=== PATIENT | female | born 1925 | race Caucasian/White ===

== ENCOUNTER 2016-12-22 10:49 | Inpatient (IN) | payer MEDICARE ==
[2016-12-22] MEDS ORDERED: SODIUM CHLORIDE 0.9% 1,000 ML IV ONE (11:13)
[2016-12-22] MEDS ORDERED: HYDROmorphone 1 MG/ML 1 ML SYRINGE IVP STA (11:13)
[2016-12-22] MEDS ORDERED: ONDANSETRON 4 MG/2 ML VIAL IVP STA (11:13)
[2016-12-22] MEDS ORDERED: hydrALAZINE HCL 20 MG/ML 1 ML VIAL IVP STA (11:16)
--- NOTE | 2016-12-22 11:41 | ED ---
Fall HPI - General Chief Complaint: Fall Stated Complaint: Fall Time Seen by Provider: 12/22/16 11:07 Source: patient, EMS Mode of arrival: EMS - History of Present Illness Initial Comments: 89-year-old white female presents with a complaint of left hip pain. She barely was on a stool and may have slid off of it when getting down and fell and landed on her left hip. She was unable to walk afterwards. The pain is fairly severe. She presents via EMS with a shortened and externally rotated left leg. She denies any other injuries. She did not hit her head. She has no neck or back pain. No other complaints or modifying factors. - Related Data Home Medications Medication Instructions Recorded Confirmed Albuterol Nebulized [Ventolin 2.5 mg PO RT-Q4H PRN 12/22/16 12/22/16 Nebulized] Atenolol 25 mg PO DAILY 12/22/16 12/22/16 Fluticasone/Salmeterol [Advair 1 inhalation PO RT-BID 12/22/16 12/22/16 250-50 Diskus] HYDROcodone/APAP 7.5-325MG [[place] 1 tab PO Q6HR PRN 12/22/16 12/22/16 7.5-325] Levothyroxine (Unknown Dose) 1 tab PO DAILY 12/22/16 12/22/16 Loratadine [Claritin] 10 mg PO DAILY 12/22/16 12/22/16 Montelukast Sodium [Singulair] 10 mg PO DAILY 12/22/16 12/22/16 Allergies Allergy/AdvReac Type Severity Reaction Status Date / Time Sulfa (Sulfonamide Allergy Itching Verified 12/22/16 11:34 Antibiotics) atorvastatin [From Lipitor] AdvReac Unknown Verified 12/22/16 11:34 methotrexate AdvReac Swelling Verified 12/22/16 11:34 Review of Systems ROS Statement: Those systems with pertinent positive or pertinent negative responses have been documented in the HPI. ROS Other: All systems not noted in ROS Statement are negative. Past Medical History Past Medical History: Asthma, COPD, Fibromyalgia Additional Past Medical History / Comment(s): neuopathy History of Any Multi-Drug Resistant Organisms: None Reported Past Surgical History: Appendectomy, Hernia Repair, Orthopedic Surgery Additional Past Surgical History / Comment(s): arm and knee orthopedic surgery Past Psychological History: No Psychological Hx Reported Smoking Status: Never smoker Past Alcohol Use History: Rare Past Drug Use History: None Reported General Exam - General Exam Comments Initial Comments: GENERAL: The patient is well nourished and well hydrated. VITAL SIGNS: Heart rate, blood pressure, respiratory rate reviewed as recorded in nurse's notes. EYES: Pupils are round and reactive. Extraocular movements are intact. No conjunctival / lid redness or swelling. ENT: No external evidence of injury, swelling, or ecchymosis. Airway is patent. Throat is clear. NECK: Nontender. No swelling or evidence of injury. No subcutaneous emphysema. Trachea is midline. No thyroid mass. HEART: Regular rate and rhythm. Good peripheral pulses. LUNGS/CHEST: Breath sounds clear and equal bilaterally. No rales, rhonchi, or wheezes. No ecchymosis, subcutaneous emphysema, or tenderness. ABDOMEN: Abdomen soft without tenderness. No palpable masses or organomegaly. No peritoneal signs. No abdominal wall swelling or ecchymosis. EXTREMITIES: There is some tenderness noted to the left hip. There is pain with any attempted range of motion left hip. Normal muscle tone and function. No thoracolumbar tenderness. Good pedal pulses noted. NEUROLOGIC: Sensation is grossly intact. Cranial nerve exam reveals face is symmetrical, tongue is midline, speech is clear. SKIN: No abrasions or ecchymosis is noted. No induration or masses noted. PSYCHIATRIC: Alert and oriented. Appropriate behavior and judgment. Limitations: no limitations Course Vital Signs 12/22/16 12/22/16 10:49 12:10 Temperature 97.8 F Pulse Rate 66 Respiratory 20 Rate Blood Pressure 208/103 156/72 O2 Sat by Pulse 97 Oximetry Medical Decision Making - Medical Decision Making The patient was seen and examined. All diagnostics were reviewed. The laboratory overall is unremarkable. The chest x-ray does not show any acute process. The left hip x-ray does show evidence of a intertrochanteric fracture. She receives Dilaudid 0.5 mg IV with significant relief of her pain. She refuses any additional pain medication on recheck. She also received Zofran for nausea prevention. It is felt as though she would benefit from admission to the hospital for further treatment. She is agreeable with this plan. Orthopedics has been paged and we are currently awaiting their call back. - Lab Data Result diagrams: 12/22/16 11:45 06/09/17 11:45 Lab Results 12/22/16 12/22/16 12/22/16 Range/Units 11:45 11:45 11:45 WBC 9.7 (3.8-10.6) k/uL RBC 3.99 (3.80-5.40) m/uL Hgb 11.9 (11.4-16.0) gm/dL Hct 36.6 (34.0-46.0) % MCV 91.9 (80.0-100.0) fL MCH 29.9 (25.0-35.0) pg MCHC 32.6 (31.0-37.0) g/dL RDW 13.3 (11.5-15.5) % Plt Count 205 (150-450) k/uL Neutrophils % 89 % Lymphocytes % 5 % Monocytes % 4 % Eosinophils % 0 % Basophils % 0 % Neutrophils # 8.6 H (1.3-7.7) k/uL Lymphocytes # 0.5 L (1.0-4.8) k/uL Monocytes # 0.4 (0-1.0) k/uL Eosinophils # 0.0 (0-0.7) k/uL Basophils # 0.0 (0-0.2) k/uL PT 10.7 (9.0-12.0) sec INR 1.1 (<1.1) APTT 23.3 (22.0-30.0) sec Sodium 134 L (137-145) mmol/L Potassium 4.4 (3.5-5.1) mmol/L Chloride 102 (98-107) mmol/L Carbon Dioxide 23 (22-30) mmol/L Anion Gap 9 mmol/L BUN 22 H (7-17) mg/dL Creatinine 0.83 (0.52-1.04) mg/dL Est GFR (MDRD) Af Amer >60 (>60 ml/min/1.73 sqM) Est GFR (MDRD) Non-Af >60 (>60 ml/min/1.73 sqM) Glucose 129 H (74-99) mg/dL Calcium 9.0 (8.4-10.2) mg/dL Disposition Clinical Impression: Fall, Fracture of left hip Disposition: ADMITTED IP TO THIS [facility] Condition: Fair Time of Disposition: 13:46 Decision Date: 12/22/16 Decision Time: 13:46
[2016-12-22 12:23] LABS: Basophils % (A) 0 %; CH 29.9; CHCM 32.6; Eosinophils % (A) 0 %; HCT 36.6 % (34.0-46.0); HDW 2.31; HGB 11.9 gm/dL (11.4-16.0); Luc # (Auto) 0.11; Luc % (Auto) 1; Lymphocytes # (A) 0.5 k/uL (1.0-4.8); Lymphocytes % (A) 5 %; MCH 29.9 pg (25.0-35.0); MCHC 32.6 g/dL (31.0-37.0); MCV 91.9 fL (80.0-100.0); Mean Platelet Volume 6.9; Monocytes # (A) 0.4 k/uL (0-1.0); Monocytes % (A) 4 %; Neutrophils # (A) 8.6 k/uL (1.3-7.7); Neutrophils % (A) 89 %; RBC 3.99 m/uL (3.80-5.40); RDW 13.3 % (11.5-15.5); WBC 9.7 k/uL (3.8-10.6); WBC (Perox) 9.63
[2016-12-22 12:28] LABS: INR 1.1 (<1.1); Partial Thromboplastin Time 23.3 sec (22.0-30.0); Prothrombin Time 10.7 sec (9.0-12.0)
[2016-12-22 12:37] LABS: Anion Gap 9 mmol/L; Blood Urea Nitrogen 22 mg/dL (7-17); Carbon Dioxide 23 mmol/L (22-30); Chloride 102 mmol/L (98-107); Glucose 129 mg/dL (74-99); Non-African American GFR(MDRD) >60 (>60 ml/min/1.73 sqM); Potassium 4.4 mmol/L (3.5-5.1); Sodium 134 mmol/L (137-145)
--- NOTE | 2016-12-22 13:17 | XR ---
EXAMINATION TYPE: XR chest 1V DATE OF EXAM: 12/22/2016 COMPARISON: NONE HISTORY: Chest pain after fall today. TECHNIQUE: Single AP portable frontal semiupright view of the chest is obtained. FINDINGS: There is chronic parenchymal change without suspicious new focal air space opacity, pleura l effusion, or pneumothorax seen. The cardiac silhouette size is within normal limits with atheroscl erotic thoracic aorta. The osseous structures are demineralized. Surgical change right humerus and shoulder is noted. IMPRESSION: No acute process.
--- NOTE | 2016-12-22 13:18 | XR ---
EXAMINATION TYPE: XR Hip LT and AP Pelvis DATE OF EXAM: 12/22/2016 COMPARISON: NONE HISTORY: Fall injury today with pelvic and left hip pain. TECHNIQUE: A single AP view of the pelvis is obtained. Two views of the left hip are obtained. FINDINGS: Osseous structures are demineralized. There is acute comminuted displaced intertrochanteric fracture left proximal femur. There are at least 3 displaced fracture fragments identified includin g largest fragment involving the lesser trochanter. Moderate joint space loss in both hips is present. No additional acute fracture and pelvis is clearly seen. Vascular calcification overlies the pelvis. IMPRESSION: There is acute comminuted displaced intertrochanteric fracture left proximal femur. (Initial encounter closed type post traumatic fracture)
--- NOTE | 2016-12-22 13:47 | ED ---
Medical Decision Making - Medical Decision Making The EKG shows a normal sinus rhythm at a rate of 63. There is no acute ST-T wave changes identified. The AR interval is 176, QRS duration is 84, and the QTc interval is 456. - Lab Data Result diagrams: 12/22/16 11:45 12/22/16 11:45 Lab Results 12/22/16 12/22/16 12/22/16 Range/Units 11:45 11:45 11:45 WBC 9.7 (3.8-10.6) k/uL RBC 3.99 (3.80-5.40) m/uL Hgb 11.9 (11.4-16.0) gm/dL Hct 36.6 (34.0-46.0) % MCV 91.9 (80.0-100.0) fL MCH 29.9 (25.0-35.0) pg MCHC 32.6 (31.0-37.0) g/dL RDW 13.3 (11.5-15.5) % Plt Count 205 (150-450) k/uL Neutrophils % 89 % Lymphocytes % 5 % Monocytes % 4 % Eosinophils % 0 % Basophils % 0 % Neutrophils # 8.6 H (1.3-7.7) k/uL Lymphocytes # 0.5 L (1.0-4.8) k/uL Monocytes # 0.4 (0-1.0) k/uL Eosinophils # 0.0 (0-0.7) k/uL Basophils # 0.0 (0-0.2) k/uL PT 10.7 (9.0-12.0) sec INR 1.1 (<1.1) APTT 23.3 (22.0-30.0) sec Sodium 134 L (137-145) mmol/L Potassium 4.4 (3.5-5.1) mmol/L Chloride 102 (98-107) mmol/L Carbon Dioxide 23 (22-30) mmol/L Anion Gap 9 mmol/L BUN 22 H (7-17) mg/dL Creatinine 0.83 (0.52-1.04) mg/dL Est GFR (MDRD) Af Amer >60 (>60 ml/min/1.73 sqM) Est GFR (MDRD) Non-Af >60 (>60 ml/min/1.73 sqM) Glucose 129 H (74-99) mg/dL Calcium 9.0 (8.4-10.2) mg/dL Disposition Clinical Impression: Fall, Fracture of left hip Disposition: ADMITTED IP TO THIS HOSP Condition: Fair Referrals: Nonstaff,Physician [Primary Care Provider] - 1-2 days
[2016-12-22] MEDS ORDERED: NALOXONE 0.4 MG/ML 1 ML VIAL IV PRN (13:48)
[2016-12-22] MEDS ORDERED: ONDANSETRON 4 MG/2 ML VIAL IVP PRN (13:48)
[2016-12-22] MEDS ORDERED: HYDROcodone/APAP 7.5-325MG 1 EACH TAB PO PRN (13:54)
[2016-12-22] MEDS ORDERED: ALBUTEROL NEBULIZED 2.5 MG/3 ML INHALATION PRN (13:54)
[2016-12-22] MEDS: HYDROmorphone 1 MG/ML 1 ML SYRINGE IV PRN ×2 (17:26→22:08)
[2016-12-22] MEDS: SYMBICORT 80-4.5 MCG INHALER INHALATION SCH (19:29)
[2016-12-23] MEDS: HYDROmorphone 1 MG/ML 1 ML SYRINGE IV PRN ×5 (01:04→22:31)
[2016-12-23] MEDS: LEVOTHYROXINE 25 MCG TAB PO SCH (06:39)
[2016-12-23] MEDS: ATENOLOL 25 MG TAB PO SCH (08:56)
[2016-12-23] MEDS: PANTOPRAZOLE 40 MG/10 ML VIAL IV SCH (08:57)
[2016-12-23] MEDS: MONTELUKAST 10 MG TAB PO SCH (08:57)
[2016-12-23] MEDS: LORATADINE 10 MG TAB PO SCH (08:57)
[2016-12-23] MEDS ORDERED: ENOXAPARIN 40 MG/0.4 ML SYRINGE SQ SCH (09:00)
[2016-12-23] MEDS: SYMBICORT 80-4.5 MCG INHALER INHALATION SCH ×2 (09:01→18:49)
--- NOTE | 2016-12-23 09:08 | HP ---
DATE OF ADMISSION: 12/22/2016 CHIEF COMPLAINT: Pain and swelling and left hip fracture. HISTORY OF PRESENT ILLNESS: This 89 -year-old woman with past medical history of asthma, COPD, history of fibromyalgia, peripheral neuropathy, hypothyroidism, history of balance issues being followed by primary physician, in the family. The patient fell and suffered a left hip fracture and patient the patient came to [facility] and was admitted to the hospital for further evaluation and treatment. The patient was also evaluated by the patient's primary physician. The patient had apparently low blood pressure medication adjusted at this time. Otherwise, there is no history of any fever, rigors or chills. No history of headache, loss of consciousness or seizures. There is no history of any chest pain, hematochezia, melena at this time. PAST MEDICAL HISTORY: History of asthma, COPD, history of fibromyalgia, hypertension, degenerative joint disease, history of neuropathy. History of gait dysfunction. Medications prior to admission include home medications are: 1. Synthroid 25 mg p.o. daily. 2. Claritin 10 mg p.o. daily. 3. Arnold 7.5 q.6h p.r.n. 4. Singulair 10 mg p.o. daily. 5. Advair 250/50, 1 puff b.i.d. 6. Atenolol 25 mg p.o. daily. 7. Albuterol 2.5 q.4 p.r.n. ALLERGIES: SULFA. NITROSTAT AND METHOTREXATE. FAMILY HISTORY: History of congestive heart failure, 89. SOCIAL HISTORY: Previous history of smoking. Occasional alcohol intake. REVIEW OF SYSTEMS: ENT: Diminishing hearing. Diminished vision. CARDIOVASCULAR: No angina, palpitations. RESPIRATORY: No cough. GI: No nausea or vomiting. GENITOURINARY: No dysuria. Nervous system: No numbness, weakness. ALLERGY/IMMUNOLOGY: No asthma or hayfever. MUSCULOSKELETAL: As mentioned earlier. HEMATOLOGY/ONCOLOGY: No history of anemia. ENDOCRINE: No diabetes. Hypothyroidism. CONSTITUTIONAL: As mentioned earlier. DERMATOLOGY: Negative. RHEUMATOLOGY: Negative. PSYCHIATRY: As mentioned earlier. PHYSICAL EXAMINATION: The patient is alert and oriented times three. Pulse 63. Blood pressure 175/80. Respiratory rate 16. Temperature 98 degrees. Pulse ox 92% on room air. HEENT: Conjunctivae normal. NECK: No jugular venous distention. CARDIOVASCULAR: S1, S2 muffled. No S3, no S4. RESPIRATORY: Breath sounds diminished at the bases. No rhonchi, no crackles. ABDOMEN: Soft, nontender. No mass palpable. No hepatosplenomegaly. LEGS: Status post left hip fracture. Nervous system: Higher function as mentioned earlier. Moves all four limbs. No focal deficits. LYMPHATICS: No lymph nodes palpable in the neck, axillae or groin. SKIN: No ulcer, rash or bleeding. LABS: CBC within normal limits, sodium 134, glucose 110. ASSESSMENT: 1. Status post left hip fracture. 2. Hyponatremia, mild. 3. Increased random blood sugar. 4. History of asthma, chronic obstructive pulmonary disease. 5. History of fibromyalgia. 6. History of hypertension. 7. History of degenerative joint disease. 8. History of hypothyroidism. 9. History of peripheral neuropathy left foot. 10. Home oxygen with 2 liters of chronic hypoxic respiratory failure at home. 11. History of degenerative joint disease. 12. Remote history of nicotine dependence. 13. FULL CODE. RECOMMENDATIONS AND DISCUSSION: In this 89-year-old woman who presented with multiple complex medical issues, we will monitor the patient closely, continue the current medications. Continue symptomatic treatment. Otherwise, at this time, I recommend resume the home medications, bronchodilators. Otherwise, DVT prophylaxis. Incentive spirometry. Proton pump inhibitors. We will follow the patient closely and orthopedics will consult with surgery. The patient is currently stable and medically cleared for surgery. Continue to follow. Further recommendations to follow. She orders for details. ESPERANZAD
[2016-12-23 09:24] LABS: Basophils % (A) 0 %; CH 29.5; CHCM 32.7; Eosinophils # (A) 0.3 k/uL (0-0.7); Eosinophils % (A) 4 %; HCT 29.4 % (34.0-46.0); Luc # (Auto) 0.14; Luc % (Auto) 2; Lymphocytes # (A) 0.8 k/uL (1.0-4.8); Lymphocytes % (A) 13 %; MCH 30.1 pg (25.0-35.0); MCHC 33.2 g/dL (31.0-37.0); MCV 90.8 fL (80.0-100.0); Mean Platelet Volume 6.5; Monocytes # (A) 0.5 k/uL (0-1.0); Monocytes % (A) 8 %; Neutrophils # (A) 4.1 k/uL (1.3-7.7); Neutrophils % (A) 72 %; RBC 3.24 m/uL (3.80-5.40); WBC 5.8 k/uL (3.8-10.6); WBC (Perox) 5.91
[2016-12-23 09:29] LABS: Anion Gap 6 mmol/L; Blood Urea Nitrogen 16 mg/dL (7-17); Calcium 8.2 mg/dL (8.4-10.2); Carbon Dioxide 23 mmol/L (22-30); Chloride 104 mmol/L (98-107); Glucose 96 mg/dL (74-99); Non-African American GFR(MDRD) >60 (>60 ml/min/1.73 sqM); Sodium 133 mmol/L (137-145)
[2016-12-23 09:32] LABS: HGB 9.8 gm/dL (11.4-16.0)
--- NOTE | 2016-12-23 11:11 | P.CNOR ---
History of Present Illness - [facility] Consult date: 12/23/16 Requesting physician: Ben Scales Consult reason: fracture (Left IT hip fracture) History of present illness: Patient is a pleasant 89-year-old female seen at bedside this morning. She states she stepped off a barstool and fell to her left hip which resulted in significant left hip pain. She was seen in the emergency department where x- rays showed a left intertrochanteric hip fracture. She was admitted to internal medicine is currently pending clearance with plans to proceed with surgical intervention to repair the left hip fracture Dr. Scales. She has pain at the left hip and thigh as expected. She denies any new complaints. She has chronic fibromyalgia and neuropathy she states at the left lower extremity which has included some numbness and tingling and pain that has been chronic. She she denies new numbness or tingling or calf pain. Review of systems is negative for fever, chills, chest pain, shortness of breath, nausea, vomiting, slurred speech or other. Review of Systems All systems: negative Constitutional: Denies chills, Denies fever Eyes: denies blurred vision, denies pain Ears, nose, mouth and throat: Denies headache, Denies sore throat Cardiovascular: Denies chest pain, Denies shortness of breath Respiratory: Denies cough Gastrointestinal: Denies abdominal pain, Denies diarrhea, Denies nausea, Denies vomiting Genitourinary: Denies dysuria, Denies hematuria Musculoskeletal: Denies myalgias Integumentary: Denies pruritus, Denies rash Neurological: Reports numbness, Denies confusion, Denies weakness Psychiatric: Denies anxiety, Denies depression Endocrine: Denies fatigue, Denies weight change Past Medical History Past Medical History: Asthma, COPD, Eye Disorder, Fibromyalgia, Hypertension, Osteoarthritis (OA), Thyroid Disorder Additional Past Medical History / Comment(s): neuopathy LT FOOT, HOME 02 2 LITERS NEEDED.OCC PALPATATIONS. History of Any Multi-Drug Resistant Organisms: None Reported Past Surgical History: Appendectomy, Hernia Repair, Orthopedic Surgery Additional Past Surgical History / Comment(s): rt wrist/shoulder sx d/t break has plate and screws,rt inguinal herna repair, rt knee arthroscopy, cataractremoved has lens implants, hemorrhoidectomy Past Anesthesia/Blood Transfusion Reactions: No Reported Reaction Additional Past Anesthesia/Blood Transfusion Reaction / Comm: had blood transfusion in past-no reaction Past Psychological History: No Psychological Hx Reported Additional Psychological History / Comment(s): pt lives in [place],alone in own home that has 3 steps. has 1 pet dog. no home care services curently. has home 02 2 liters n/c as needed and uses a cane when outside her home. Smoking Status: Former smoker Past Alcohol Use History: Rare Additional Past Alcohol Use History / Comment(s): started smoking at age 22 quit at age 62 smoked 6-7 cig/day Past Drug Use History: None Reported - Past Family History Mother Family Medical History: Congestive Heart Failure (CHF) Additional Family Medical History / Comment(s): at age 97 Father Family Medical History: CVA/TIA Additional Family Medical History / Comment(s): at age 88 Medications and Allergies Home Medications Medication Instructions Recorded Confirmed Type Albuterol Nebulized [Ventolin 2.5 mg PO RT-Q4H PRN 12/22/16 12/22/16 History Nebulized] Atenolol 25 mg PO DAILY 12/22/16 12/22/16 History Fluticasone/Salmeterol [Advair 1 inhalation PO RT-BID 12/22/16 12/22/16 History 250-50 Diskus] HYDROcodone/APAP 7.5-325MG [[place] 1 tab PO Q6HR PRN 12/22/16 12/22/16 History 7.5-325] Levothyroxine Sodium [Synthroid] 25 mcg PO QAM 12/22/16 12/22/16 History Loratadine [Claritin] 10 mg PO DAILY 12/22/16 12/22/16 History Montelukast Sodium [Singulair] 10 mg PO DAILY 12/22/16 12/22/16 History Allergies Allergy/AdvReac Type Severity Reaction Status Date / Time Sulfa (Sulfonamide Allergy Itching Verified 12/22/16 11:34 Antibiotics) atorvastatin [From Lipitor] AdvReac MUSCLE PAIN Verified 12/22/16 14:08 methotrexate AdvReac Swelling Verified 12/22/16 11:34 Physical Examination Inspection of the left lower extremity shows a shortened externally rotated left leg. Left hip is not put through range of motion due to her fracture. Motor is intact at the knee, ankle, foot and toes. Sensation to light touch is intact about the left lower extremity. The calf is soft and nontender. 2+ dorsalis pedis pulse and less than 2 second cap refill is present. Results X-ray of the pelvis left hip show a mild displaced intertrochanteric femur fracture. - Labs Labs: Abnormal Lab Results - Last 24 Hours (Table) 12/22/16 12/22/16 12/23/16 Range/Units 11:45 11:45 08:00 RBC 3.24 L (3.80-5.40) m/uL Hgb 9.8 L D (11.4-16.0) gm/dL Hct 29.4 L (34.0-46.0) % Neutrophils # 8.6 H (1.3-7.7) k/uL Lymphocytes # 0.5 L 0.8 L (1.0-4.8) k/uL Sodium 134 L (137-145) mmol/L BUN 22 H (7-17) mg/dL Glucose 129 H (74-99) mg/dL Calcium (8.4-10.2) mg/dL 12/23/16 Range/Units 08:00 RBC (3.80-5.40) m/uL Hgb (11.4-16.0) gm/dL Hct (34.0-46.0) % Neutrophils # (1.3-7.7) k/uL Lymphocytes # (1.0-4.8) k/uL Sodium 133 L (137-145) mmol/L BUN (7-17) mg/dL Glucose (74-99) mg/dL Calcium 8.2 L (8.4-10.2) mg/dL H & H 12/22/16 12/23/16 Range/Units 11:45 08:00 Hgb 11.9 9.8 L D (11.4-16.0) gm/dL Hct 36.6 29.4 L (34.0-46.0) % Coagulation 12/22/16 Range/Units 11:45 INR 1.1 (<1.1) Result Diagrams: 12/23/16 08:00 12/23/16 08:00 - Diagnostic results Hip x-ray: report reviewed, image reviewed Assessment and Plan (1) Fracture of left hip Narrative/Plan: Plan is to proceed with surgical intervention including ORIF of the left hip fracture. Request for preoperative clearance has been ordered. She is nothing by mouth after midnight. The procedure has been scheduled and boarded. The procedure has been discussed with anesthesia. Continue with pain management, medical management and DVT prophylaxis. The procedure was discussed with Patient and her son. They understand the possible risks, complications and benefits. She desires to proceed. Status: Acute Time with Patient: Greater than 30 (Interviewing patient, reviewing studies, orders, discussing care with health care team)
[2016-12-23 16:54] LABS: Appearance,Urine Clear (Clear); Bilirubin,Urine Negative (Negative); Glucose,Urine (UA) Negative (Negative); Ketones,Urine Negative (Negative); Leukocyte Esterase,Urine Negative (Negative); Mucus,Urine Rare /hpf; Nitrite,Urine Negative (Negative); Particle Count 2022; Protein,Urine Trace (Negative); RBC,Urine 4 /hpf (0-5); Specific Gravity,Urine 1.014 (1.001-1.035); Squamous Epithelial Cell,Urine <1 /hpf (0-4); UA Billing (MACRO vs. MICRO) MICRO; Urobilinogen,Urine <2.0 mg/dL (<2.0); WBC,Urine 2 /hpf (0-5)
[2016-12-23] MEDS: IPRATROPIUM 0.5 MG/2.5 ML NEBU INHALATION SCH (18:49)
[2016-12-23] MEDS: LEVALBUTEROL NEB (CONC) 1.25 MG/0.5 ML AMP INHALATION SCH (18:49)
[2016-12-23] MEDS: HEPARIN SODIUM,PORCINE 5,000 UNIT/ML 1 ML VIAL SQ SCH (22:49)
[2016-12-24] MEDS: LEVALBUTEROL NEB (CONC) 1.25 MG/0.5 ML AMP INHALATION SCH ×3 (07:21→19:48)
[2016-12-24] MEDS: IPRATROPIUM 0.5 MG/2.5 ML NEBU INHALATION SCH ×3 (07:21→19:48)
[2016-12-24] MEDS: SYMBICORT 80-4.5 MCG INHALER INHALATION SCH ×2 (07:21→19:48)
[2016-12-24] MEDS ORDERED: MIDAZOLAM 2 MG/2 ML VIAL ONE (08:09)
[2016-12-24] MEDS ORDERED: fentaNYL (PF) 50 MCG/ML 2 ML AMP ONE (08:09)
[2016-12-24] MEDS ORDERED: KETAMINE 10 MG/ML 20 ML VIAL ONE (08:09)
[2016-12-24] MEDS ORDERED: PHENYLEPHRINE-0.9% NACL SYG 1 MG/10 ML SYRINGE ONE (08:09)
[2016-12-24] MEDS ORDERED: SODIUM CHLORIDE 0.9% 50 ML with ceFAZolin 2,000 MG IV ONE ×2 (08:09)
[2016-12-24] MEDS ORDERED: LACTATED RINGERS 1,000 ML IV ONE (08:09)
--- NOTE | 2016-12-24 08:53 | PN ---
DATE OF SERVICE: 12/23/2016 This 89-year-old woman who was admitted with left hip fracture is being closely monitored. No chest pain. No palpitations. Orthopedics is planning surgery tentatively tomorrow. No fever. No cough. The patient is medically cleared for surgery. On exam, alert and oriented x3. Pulse is 80, blood pressure is 159/72, respirations 20, temperature 99.2, pulse ox 98% on room air. HEENT: Conjunctivae normal. Oral mucosa moist. NECK: No jugular venous distention. No carotid bruit. No lymph node enlargement. CARDIOVASCULAR: S1, S2 muffled. No S3, no S4. RESPIRATORY: Breath sounds diminished at the bases. No rhonchi, no crackles. ABDOMEN: Soft, nontender. No mass palpable. LEGS: Status post hip fracture. CENTRAL NERVOUS SYSTEM: No focal deficits. LABS: WBC 5.8, hemoglobin of 9.8, sodium 133. ASSESSMENT: 1. Status post left hip fracture with severe pain. 2. Hyponatremia, mild. 3. Increased random blood sugar. 4. History of asthma, chronic obstructive pulmonary disease. 5. Fibromyalgia. 6. History. 7. Degenerative joint disease . 8. History of hypothyroidism. 9. History of history of peripheral neuropathy of the left foot. 10. Home oxygen 2 liters chronic hypoxic respiratory failure at home. 11. History of degenerative joint disease. 12. Remote history of nicotine dependence. RECOMMENDATIONS AND DISCUSSION: In this 89 -year-old woman who presented with multiple complex medical issues, we will monitor the patient closely, continue the current medications, continue with the symptomatic treatment. Otherwise, at this time, I would recommend continue the current medications, continue with the symptomatic treatment. We will also optimize bronchodilator treatment as well. Otherwise, closely follow with orthopedic surgery. Further recommendations to follow. See orders for further details.
[2016-12-24] MEDS: HEPARIN SODIUM,PORCINE 5,000 UNIT/ML 1 ML VIAL SQ SCH ×2 (09:00→20:08)
--- NOTE | 2016-12-24 09:29 | FL ---
EXAMINATION TYPE: FL guidance operating room, XR Hip Limited LT DATE OF EXAM: 12/24/2016 CLINICAL HISTORY: Left hip fracture. TECHNIQUE: Fluoroscopy. Intraoperative limited views left hip. COMPARISON: Pelvic and left hip x-ray from 2 days earlier. FINDINGS: Fluoroscopic guidance was provided during open reduction internal fixation procedure perfo rmed by Dr. Scales. A total of 29 seconds of fluoroscopic time was utilized during the procedure and 6 spot intraoperative images are acquired. Images acquired show advancement of surgical hardware with eventual placement of lateral fixating dm te that has large femoral neck fixating component and 3 distal transverse screws through comminuted i ntertrochanteric fracture left proximal femur. Improved alignment is seen after reduction and fixatio n. IMPRESSION: As Above.
[2016-12-24] MEDS ORDERED: MAGNESIUM HYDROXIDE 2,400 MG/10 ML CUP PO PRN (09:34)
[2016-12-24] MEDS ORDERED: DIAZEPAM 5 MG TAB PO PRN (09:34)
[2016-12-24] MEDS ORDERED: HYDROmorphone 1 MG/ML 1 ML SYRINGE IVP PRN ×2 (09:34)
[2016-12-24] MEDS ORDERED: hydrOXYzine PAMOATE 25 MG CAP PO PRN (09:34)
[2016-12-24] MEDS ORDERED: TEMAZEPAM 15 MG CAP PO PRN (09:34)
--- NOTE | 2016-12-24 09:58 | XR ---
EXAMINATION TYPE: XR Hip Complete LT DATE OF EXAM: 12/24/2016 CLINICAL HISTORY: Left hip fracture status post reduction and fixation. TECHNIQUE: Single AP portable view of left hip is obtained immediately postoperatively. COMPARISON: Presurgical study 2 days earlier. FINDINGS: Lateral fixating plate contiguous with proximal large femoral neck fixating screw and addit ional 3 distal transverse fixating screws through comminuted intertrochanteric fracture left proximal femur is present. Improved alignment is seen after reduction and fixation. Fracture fragment involvi ng lesser trochanter is redemonstrated. There is evidence of recent surgery with subcutaneous gas and vertical silas noted laterally. IMPRESSION: Improved alignment after open reduction internal fixation.
[2016-12-24 11:37] LABS: Basophils % (A) 0 %; CH 29.6; CHCM 31.7; Eosinophils % (A) 0 %; HCT 28.8 % (34.0-46.0); HDW 2.36; HGB 9.2 gm/dL (11.4-16.0); Luc # (Auto) 0.16; Luc % (Auto) 2; Lymphocytes # (A) 0.7 k/uL (1.0-4.8); Lymphocytes % (A) 8 %; MCHC 31.9 g/dL (31.0-37.0); MCV 94.1 fL (80.0-100.0); Mean Platelet Volume 7.1; Monocytes # (A) 0.6 k/uL (0-1.0); Monocytes % (A) 7 %; Neutrophils # (A) 7.5 k/uL (1.3-7.7); Neutrophils % (A) 83 %; RBC 3.06 m/uL (3.80-5.40); RDW 13.3 % (11.5-15.5); WBC (Perox) 9.01
[2016-12-24 11:50] LABS: Anion Gap 6 mmol/L; Blood Urea Nitrogen 11 mg/dL (7-17); Carbon Dioxide 21 mmol/L (22-30); Chloride 104 mmol/L (98-107); Glucose 114 mg/dL (74-99); Non-African American GFR(MDRD) >60 (>60 ml/min/1.73 sqM); Potassium 3.6 mmol/L (3.5-5.1); Sodium 131 mmol/L (137-145)
[2016-12-24] MEDS: LEVOTHYROXINE 25 MCG TAB PO SCH (13:19)
[2016-12-24] MEDS: LORATADINE 10 MG TAB PO SCH (13:20)
[2016-12-24] MEDS: ATENOLOL 25 MG TAB PO SCH (13:20)
[2016-12-24] MEDS: PANTOPRAZOLE 40 MG/10 ML VIAL IV SCH (13:20)
[2016-12-24] MEDS: MONTELUKAST 10 MG TAB PO SCH (13:20)
[2016-12-24] MEDS: HYDROmorphone 1 MG/ML 1 ML SYRINGE IVP PRN ×2 (14:19→18:59)
[2016-12-24] MEDS: LACTATED RINGERS 1,000 ML IV SCH ×2 (14:33→20:08)
[2016-12-24] MEDS: ceFAZolin 2 GM in SODIUM CHLORIDE 0.9% 100 ML IVPB SCH ×2 (15:59→23:18)
[2016-12-24 17:05] LABS: Glucose,Whole Blood 135 mg/dL (75-99)
[2016-12-24] MEDS: ACETAMINOPHEN TAB 325 MG TAB PO PRN (20:06)
[2016-12-24] MEDS: SENNOSIDES-DOCUSATE SODIUM 1 EACH TAB PO SCH (20:11)
[2016-12-24] MEDS: HYDROcodone/APAP 5-325MG 1 EACH TAB PO PRN (20:11)
[2016-12-25] MEDS: HYDROcodone/APAP 5-325MG 1 EACH TAB PO PRN ×3 (02:22→22:23)
[2016-12-25] MEDS: LACTATED RINGERS 1,000 ML IV SCH ×3 (05:07→20:11)
[2016-12-25] MEDS: LEVOTHYROXINE 25 MCG TAB PO SCH (06:28)
[2016-12-25] MEDS: ATENOLOL 25 MG TAB PO SCH (08:26)
[2016-12-25] MEDS: MONTELUKAST 10 MG TAB PO SCH (08:26)
[2016-12-25] MEDS: PANTOPRAZOLE 40 MG/10 ML VIAL IV SCH (08:26)
[2016-12-25] MEDS: LORATADINE 10 MG TAB PO SCH (08:26)
[2016-12-25] MEDS: HEPARIN SODIUM,PORCINE 5,000 UNIT/ML 1 ML VIAL SQ SCH ×2 (08:27→20:12)
[2016-12-25 08:39] LABS: Basophils % (A) 0 %; CH 29.8; CHCM 33.3; Eosinophils # (A) 0.2 k/uL (0-0.7); Eosinophils % (A) 3 %; HCT 26.8 % (34.0-46.0); HDW 2.52; HGB 8.9 gm/dL (11.4-16.0); Luc # (Auto) 0.23; Luc % (Auto) 3; Lymphocytes % (A) 12 %; MCH 29.9 pg (25.0-35.0); MCHC 33.2 g/dL (31.0-37.0); Mean Platelet Volume 6.6; Monocytes # (A) 0.7 k/uL (0-1.0); Monocytes % (A) 8 %; Neutrophils # (A) 6.4 k/uL (1.3-7.7); Neutrophils % (A) 75 %; RBC 2.98 m/uL (3.80-5.40); RDW 12.8 % (11.5-15.5); WBC 8.6 k/uL (3.8-10.6); WBC (Perox) 8.72
[2016-12-25 09:03] LABS: Anion Gap 8 mmol/L; Blood Urea Nitrogen 10 mg/dL (7-17); Calcium 8.1 mg/dL (8.4-10.2); Carbon Dioxide 23 mmol/L (22-30); Chloride 102 mmol/L (98-107); Glucose 105 mg/dL (74-99); Non-African American GFR(MDRD) >60 (>60 ml/min/1.73 sqM); Potassium 3.5 mmol/L (3.5-5.1); Sodium 133 mmol/L (137-145)
--- NOTE | 2016-12-25 09:04 | P.PN ---
Subjective Principal diagnosis: Status post left hip ORIF This is a 89 year-old female post left hip ORIF. This is post-op day 1. The patient was evaluated at the bedside today. The patient denies nausea, vomiting , abdominal pain, shortness of breath, and chest pain this morning. She states her pain is controlled at this time. The patient has not been up with physical therapy yet this morning. Objective - Vital Signs Vital signs: Vital Signs Temp 98.1 F 12/25/16 07:21 Pulse 76 12/25/16 07:21 Resp 16 12/25/16 07:21 BP 130/63 12/25/16 07:21 Pulse Ox 93 L 12/25/16 07:21 Intake & Output 12/24/16 12/25/16 12/25/16 18:59 06:59 18:59 Intake Total 1200 450 Output Total 550 800 Balance 650 -350 Intake: IV 800 Intake, IV Titration 400 Amount Lactated Ringers 1,000 ml 400 @ 100 mls/hr IV .Q10H [facility] Rx#:[id number] Oral 450 Output: Urine 500 800 Estimated Blood Loss 50 Other: Voiding Method Indwelling Catheter Indwelling Catheter - Exam The patient does not appear in acute distress. Alert and orientated x3. Dressing is clean dry and intact. Incision appears fine with no erythema or active drainage. Calf is soft and nontender. Good foot and ankle motion without difficulty. Sensation and circulatory status is intact. - Labs CBC & Chem 7: 12/25/16 08:05 12/24/16 10:47 Labs: Abnormal Lab Results - Last 24 Hours (Table) 12/24/16 12/24/16 12/24/16 Range/Units 10:47 10:53 17:03 RBC 3.06 L (3.80-5.40) m/uL Hgb 9.2 L (11.4-16.0) gm/dL Hct 28.8 L (34.0-46.0) % Lymphocytes # 0.7 L (1.0-4.8) k/uL Sodium 131 L (137-145) mmol/L Carbon Dioxide 21 L (22-30) mmol/L Glucose 114 H (74-99) mg/dL POC Glucose (mg/dL) 135 H (75-99) mg/dL Calcium 8.0 L (8.4-10.2) mg/dL 12/25/16 Range/Units 08:05 RBC 2.98 L (3.80-5.40) m/uL Hgb 8.9 L (11.4-16.0) gm/dL Hct 26.8 L (34.0-46.0) % Lymphocytes # (1.0-4.8) k/uL Sodium (137-145) mmol/L Carbon Dioxide (22-30) mmol/L Glucose (74-99) mg/dL POC Glucose (mg/dL) (75-99) mg/dL Calcium (8.4-10.2) mg/dL Assessment and Plan (1) Fall Status: Acute (2) Fracture of left hip Status: Acute (3) Status post hip surgery Status: Acute Plan: 1. Continue pain control 2. Anticoagulation with Coumadin per protocol, bridge with Heparin until INR therapeutic 3. Start physical therapy and ambulation 4. Anticipate discharge to skilled rehab likely upon discharge.
[2016-12-25] MEDS: SYMBICORT 80-4.5 MCG INHALER INHALATION SCH ×2 (09:29→19:56)
[2016-12-25] MEDS: LEVALBUTEROL NEB (CONC) 1.25 MG/0.5 ML AMP INHALATION SCH ×2 (09:29→13:45)
[2016-12-25] MEDS: IPRATROPIUM 0.5 MG/2.5 ML NEBU INHALATION SCH ×2 (09:29→13:45)
[2016-12-25] MEDS: MULTIVITAMINS, THERA 1 EACH TAB PO SCH (11:43)
--- NOTE | 2016-12-25 14:09 | PN ---
DATE OF SERVICE: 12/25/2016 This 89-year-old woman was admitted after left hip fracture, underwent ORIF of the left hip with left intertrochanteric nail by Dr. Scales. There is no history of chest pain, no history of palpitations. No history of headache, loss of consciousness, seizures. Mild fever is noted. On exam, alert and oriented x3. Pulse 81, blood pressure 100/60, respirations 18, temperature 99.4, pulse ox 94% on room air. HEENT: Conjunctivae normal. NECK: No jugular venous distention. CARDIOVASCULAR: S1 and S2. RESPIRATORY: Breath sounds diminished at the bases. No rhonchi, no crackles. ABDOMEN: Soft, nontender. LEGS: Status post surgery. NERVOUS SYSTEM: No focal deficits. LABS: WBC 9, hemoglobin 9.2, sodium 131. UA was unremarkable. Glucose 135. Chest x-ray on admission, no acute process. ASSESSMENT: 1. Status post left hip fracture and open reduction and internal fixation with intertrochanteric nailing. 2. Fever for evaluation. 3. Severe pain, improved. 4. Hyponatremia, mild. 5. Increased random blood sugar. 6. History of asthma, chronic obstructive pulmonary disease history. 7. History of fibromyalgia. 8. Degenerative joint disease. 9. History of hypothyroidism. 10. History of peripheral neuropathy of the left foot. 11. History of oxygen 2 liters with chronic hypoxic respiratory failure at home. 12. History of degenerative joint disease. 13. Remote history of nicotine dependence. 14. FULL CODE. RECOMMENDATIONS AND DISCUSSION: In this 89-year-old woman who presented with multiple complex medical issues, will monitor the patient closely, continue the current medications and symptomatic treatment. Repeat labs. Incentive spirometry. Pain medications, DVT prophylaxis. Closely monitor along with Orthopedic Surgery. Further recommendations to follow.
--- NOTE | 2016-12-25 17:26 | P.PN ---
Subjective Date of service 10/25/2016. Personal being dictated for Dr. Mccormick. Interval history: This is an 89-year-old female status post left hip ORIF yesterday, tolerated procedure well. Maintains nonweightbearing, up in chair with PT OT. Good diet intake, no nausea vomiting or diarrhea. Passing flatus, no bowel movement. Pain controlled. Denies chest pain, palpitations. Denies increase in shortness of breath. Afebrile, T-max 101.6, UA negative. Objective - Vital Signs Vital signs: Vital Signs Temp 101.1 F H 12/25/16 14:57 Pulse 86 12/25/16 14:57 Resp 16 12/25/16 14:57 BP 136/74 12/25/16 14:57 Pulse Ox 95 12/25/16 14:57 Intake & Output 12/24/16 12/25/16 12/25/16 18:59 06:59 18:59 Intake Total 1200 450 800 Output Total 550 800 Balance 650 -350 800 Intake: IV 800 Intake, IV Titration 400 800 Amount Lactated Ringers 1,000 ml 400 800 @ 100 mls/hr IV .Q10H [facility] Rx#:[id number] Oral 450 Output: Urine 500 800 Estimated Blood Loss 50 Other: Voiding Method Indwelling Catheter Indwelling Catheter - Exam PHYSICAL EXAM: VITAL SIGNS: As above GENERAL: [Sitting up in chair, no acute distress] HEENT: [Pupils equal conjunctiva normal.] NECK: [Supple, no JVD] RESPIRATORY EFFORT:[ Normal] LUNGS: [Bilateral bases diminished, no wheezes rhonchi or crackles] CARDIOVASCULAR[ regular S1 and S2, no murmurs rubs or gallops, mild edema] GI: [Abdomen soft, nontender, positive bowel sounds. No organomegaly, no rigidity] PSYCH: [Alert and oriented -3, mood and affect normal.] EXTREMITY: Dressing clean dry and intact NEURO: No focal deficits, - Labs CBC & Chem 7: 12/25/16 08:05 12/25/16 08:05 Labs: Abnormal Lab Results - Last 24 Hours (Table) 12/25/16 12/25/16 Range/Units 08:05 08:05 RBC 2.98 L (3.80-5.40) m/uL Hgb 8.9 L (11.4-16.0) gm/dL Hct 26.8 L (34.0-46.0) % Sodium 133 L (137-145) mmol/L Glucose 105 H (74-99) mg/dL Calcium 8.1 L (8.4-10.2) mg/dL Assessment and Plan Plan: 1. Left hip fracture secondary to fall, status post left ORIF. 2. [ Fever for evaluation]. 3. [] Severe pain, controlled. 4. [] Hyponatremia, improved. 5. [] Asthma, COPD history. 6. [ Fibromyalgia, history]. 7. Degenerative joint disease 8. Hypothyroidism 9 Peripheral neuropathy of left foot 10. Chronic hypoxic respiratory failure home, wears 2 L nasal cannula 11. Degenerative joint disease 12. History of nicotine dependence Plan: Continue on current medication regime ,monitoring and symptomatic treatment. Pain management and anticoagulation as per orthopedics. PT/OT as per orthopedics. Fever workup in progress, chest x-ray portable ordered. Aggressive pulmonary toileting including Incentive spirometer reeducated on. potential subacute rehab at discharge. The impression and plan of care has been dictated as directed. : I performed a H&P examination of this patient and discussed the same with the dictator. I agree with the dictator's note. Any additional findings/opinions/ etc. will be noted.
[2016-12-25] MEDS ORDERED: WARFARIN 2.5 MG TAB PO ONE (18:00)
[2016-12-25] MEDS: IPRATROPIUM-ALBUTEROL 3 ML NEB INHALATION SCH ×2 (18:34→19:56)
--- NOTE | 2016-12-25 18:54 | OP ---
DATE OF SERVICE: 12/24/2016 SURGEON: VÍCTOR DORSEY DO COILED COIL INSPECTOR: Fabián Rodriguez PA-C PREOPERATIVE DIAGNOSIS: Comminuted displaced intertrochanteric fracture of the left hip. POSTOPERATIVE DIAGNOSIS: Comminuted displaced intertrochanteric fracture of the left hip. OPERATION: Open reduction internal fixation of comminuted displaced intertrochanteric fracture of the left hip ANESTHESIA: ESTIMATED BLOOD LOSS: SPECIMENS REMOVED: COMPLICATIONS: OPERATIVE FINDINGS: DESCRIPTION OF PROCEDURE: Patient was taken to the operative suite and placed in supine position. General inhalational anesthesia was performed by the department of anesthesiology. She was placed on the fracture table and secured in the left hip fracture ( ). Betadine prep was carried out over the left hip. Sterile drapes were applied in the usual manner. An incision was developed over the proximal femur and sharp dissection through the subcutaneous tissue was performed. Vastus lateralis was incised and fascia lateral also was incised. Both anterior and lateral x-ray performed for position. Position was accepted and the appropriate reamer was utilized in reaming bone.the 135 degree guide wire inserted into femur head. The 75 mm screw was introduced and secured. The 130 plate was secured with 3 screws. Traction was released, Area was irrigated. X-rays were then performed documenting the alignment and position was stabilized. The Vastus lateralis was suture 3-0 Vicryl suture was also utilized fascia karis. The subcutaneous tissue was approximated with 2-0 Vicryl suture. Skin was approximated with skin clips. Betadine, Adaptic and sterile pressure dressings were applied. The patient was transferred to the recovery room in satisfactory postoperative condition. GROSS PATHOLOGY: Evidence of comminuted displaced intertrochanteric fracture of the left hip. MICHAEL
[2016-12-25] MEDS: SENNOSIDES-DOCUSATE SODIUM 1 EACH TAB PO SCH (20:11)
--- NOTE | 2016-12-25 21:48 | PN ---
DATE OF SERVICE: 12/25/2016 This 89 -year-old woman who was admitted with left hip fracture, underwent ORIF. Seen and evaluated the patient along with nurse practitioner. Please refer to the nurse practitioner notes and impression documented as a scribe for further information. Hemoglobin is 8.9. Sodium is 130. Continue to monitor.
--- NOTE | 2016-12-25 22:43 | XR ---
EXAMINATION TYPE: XR chest 1V portable DATE OF EXAM: 12/25/2016 COMPARISON: December 22, 2016 HISTORY: Fever TECHNIQUE: Single frontal view of the chest is obtained. FINDINGS: There is no focal air space opacity, pleural effusion, or pneumothorax seen. The cardiac silhouette size is within normal limits. The osseous structures are intact. IMPRESSION: No acute process.
[2016-12-26] MEDS: LEVOTHYROXINE 25 MCG TAB PO SCH (06:39)
[2016-12-26] MEDS: SYMBICORT 80-4.5 MCG INHALER INHALATION SCH ×2 (07:30→19:17)
[2016-12-26] MEDS: IPRATROPIUM-ALBUTEROL 3 ML NEB INHALATION SCH ×4 (07:31→19:17)
--- NOTE | 2016-12-26 08:27 | P.PN ---
Subjective Principal diagnosis: Status post ORIF left hip This is a 89-year-old female who is status post open reduction internal fixation of the left hip. She is doing fairly well from an orthopedic standpoint. She has no new complaints or concerns today. She states that her pain is fairly well controlled. Objective - Vital Signs Vital signs: Vital Signs Temp 99.5 F 12/26/16 07:00 Pulse 70 12/26/16 07:44 Resp 20 12/26/16 07:00 BP 139/69 12/26/16 07:00 Pulse Ox 96 12/26/16 07:00 Intake & Output 12/25/16 12/26/16 12/26/16 18:59 06:59 18:59 Intake Total 800 600 Output Total 1200 Balance 800 -600 Intake: Intake, IV Titration 800 Amount Lactated Ringers 1,000 ml 800 @ 100 mls/hr IV .Q10H [facility] Rx#:[id number] Oral 600 Output: Urine 1200 Uretheral ([place]) 600 Other: Voiding Method Indwelling Catheter - Exam This is a pleasant 89-year-old female in no acute distress. She is alert and oriented 3. Exam of the left hip reveals her dressing is clean, dry and intact. There is moderate swelling to the hip and thigh. There is no calf swelling or calf pain. She has full foot and ankle motion without difficulty or pain. Neurovascular status to the left lower extremity is intact. - Labs CBC & Chem 7: 12/25/16 08:05 12/25/16 08:05 Labs: Abnormal Lab Results - Last 24 Hours (Table) 12/25/16 12/25/16 Range/Units 08:05 08:05 RBC 2.98 L (3.80-5.40) m/uL Hgb 8.9 L (11.4-16.0) gm/dL Hct 26.8 L (34.0-46.0) % Sodium 133 L (137-145) mmol/L Glucose 105 H (74-99) mg/dL Calcium 8.1 L (8.4-10.2) mg/dL Assessment and Plan (1) Fracture of left hip Status: Acute (2) Status post hip surgery Status: Acute Plan: The clinical findings are discussed the patient. She is to continue with physical therapy. She may be discharged to inpatient rehab when cleared medically.
[2016-12-26 08:28] LABS: Prothrombin Time 10.6 sec (9.0-12.0)
[2016-12-26] MEDS: PANTOPRAZOLE 40 MG TABLET PO SCH (08:34)
[2016-12-26] MEDS: HEPARIN SODIUM,PORCINE 5,000 UNIT/ML 1 ML VIAL SQ SCH ×2 (08:38→21:18)
[2016-12-26] MEDS: MONTELUKAST 10 MG TAB PO SCH (08:38)
[2016-12-26] MEDS: ATENOLOL 25 MG TAB PO SCH (08:38)
[2016-12-26] MEDS: LORATADINE 10 MG TAB PO SCH (08:38)
[2016-12-26] MEDS: HYDROcodone/APAP 5-325MG 1 EACH TAB PO PRN ×2 (08:39→23:33)
[2016-12-26 10:31] VITALS: BMI 22.0
[2016-12-26] MEDS: MULTIVITAMINS, THERA 1 EACH TAB PO SCH (12:42)
[2016-12-26] MEDS: LACTATED RINGERS 1,000 ML IV SCH ×2 (12:42→21:19)
[2016-12-26 13:46] LABS: Appearance,Urine Clear (Clear); Bilirubin,Urine Negative (Negative); Glucose,Urine (UA) Negative (Negative); Ketones,Urine Negative (Negative); Leukocyte Esterase,Urine Trace (Negative); Mucus,Urine Rare /hpf; Nitrite,Urine Negative (Negative); PH, Urine 6.5 (5.0-8.0); Particle Count 973; Protein,Urine Negative (Negative); RBC,Urine 1 /hpf (0-5); Specific Gravity,Urine 1.008 (1.001-1.035); UA Billing (MACRO vs. MICRO) MICRO; Urobilinogen,Urine <2.0 mg/dL (<2.0); WBC,Urine 2 /hpf (0-5)
[2016-12-26] MEDS: ACETAMINOPHEN TAB 325 MG TAB PO PRN (17:25)
--- NOTE | 2016-12-26 17:40 | P.PN ---
Subjective Date of service 10/26/2016. Personal being dictated for Dr. Mccormick. Interval history: This is an 89-year-old female status post left hip ORIF yesterday, tolerated procedure well. Up in chair with PT OT. Good diet intake , no nausea vomiting or diarrhea. States positive bowel movement. Pain controlled. Afebrile, T-max 101.1. Chest x-ray from yesterday afternoon nonacute. Denies chest pain, palpitations. Denies increase in shortness of breath. Objective - Vital Signs Vital signs: Vital Signs Temp 100.3 F H 12/26/16 17:24 Pulse 68 12/26/16 15:38 Resp 20 12/26/16 15:00 BP 129/47 12/26/16 15:00 Pulse Ox 98 12/26/16 15:00 Intake & Output 12/25/16 12/26/16 12/26/16 18:59 06:59 18:59 Intake Total 800 600 240 Output Total 1200 550 Balance 800 -600 -310 Weight 51.256 kg Intake: Intake, IV Titration 800 Amount Lactated Ringers 1,000 ml 800 @ 100 mls/hr IV .Q10H [facility] Rx#:[id number] Oral 600 240 Output: Urine 1200 550 Uretheral ([place]) 600 Other: Voiding Method Indwelling Catheter Indwelling Catheter # Bowel Movements 0 - Exam PHYSICAL EXAM: VITAL SIGNS: As above GENERAL: [Sitting up in chair, no acute distress] HEENT: [Pupils equal conjunctiva normal. Oral mucosa moist] NECK: [Supple, no JVD] RESPIRATORY EFFORT:[ Normal] LUNGS: [Bilateral bases diminished, no wheezes, rhonchi or crackles] CARDIOVASCULAR[ regular S1 and S2, no murmurs rubs or gallops, mild edema] GI: [Abdomen soft, nontender, positive bowel sounds. No organomegaly, no rigidity] PSYCH: [Alert and oriented -3, mood and affect normal.] EXTREMITY: Dressing clean dry and intact NEURO: No focal deficits, - Labs CBC & Chem 7: 12/25/16 08:05 12/25/16 08:05 Labs: Abnormal Lab Results - Last 24 Hours (Table) 12/26/16 Range/Units 13:12 Urine Blood Trace H (Negative) Ur Leukocyte Esterase Trace H (Negative) Urine Mucus Rare H (None) /hpf Assessment and Plan Plan: 1. Left hip fracture secondary to fall, status post left ORIF. 2. [ Fever for evaluation, pancultured]. 3. [] Severe pain, controlled. 4. [] Hyponatremia, improved. 5. [] Asthma, COPD history. 6. [ Fibromyalgia, history]. 7. Degenerative joint disease 8. Hypothyroidism 9 Peripheral neuropathy of left foot 10. Chronic hypoxic respiratory failure home, wears 2 L nasal cannula 11. Degenerative joint disease 12. History of nicotine dependence Plan: Continue on current medication regime ,monitoring and symptomatic treatment. Pancultured, with Rocephin ordered after blood cultures collected. Pain management and anticoagulation as per orthopedics. Aggressive pulmonary toileting including Incentive spirometer reeducated on. potential subacute rehab at discharge. The impression and plan of care has been dictated as directed. : I performed a H&P examination of this patient and discussed the same with the dictator. I agree with the dictator's note. Any additional findings/opinions/ etc. will be noted.
[2016-12-26] MEDS: SENNOSIDES-DOCUSATE SODIUM 1 EACH TAB PO SCH (21:18)
[2016-12-27] MEDS: LEVOTHYROXINE 25 MCG TAB PO SCH (06:39)
[2016-12-27] MEDS: IPRATROPIUM-ALBUTEROL 3 ML NEB INHALATION SCH ×4 (07:17→20:15)
[2016-12-27] MEDS: SYMBICORT 80-4.5 MCG INHALER INHALATION SCH ×2 (07:19→20:14)
[2016-12-27] MEDS: ATENOLOL 25 MG TAB PO SCH (08:37)
[2016-12-27] MEDS: MONTELUKAST 10 MG TAB PO SCH (08:37)
[2016-12-27] MEDS: LORATADINE 10 MG TAB PO SCH (08:37)
[2016-12-27] MEDS: HEPARIN SODIUM,PORCINE 5,000 UNIT/ML 1 ML VIAL SQ SCH ×2 (08:37→21:05)
[2016-12-27] MEDS: PANTOPRAZOLE 40 MG TABLET PO SCH (08:37)
[2016-12-27 09:12] LABS: Prothrombin Time 10.3 sec (9.0-12.0)
[2016-12-27] MEDS: LACTATED RINGERS 1,000 ML IV SCH ×2 (10:15→21:05)
[2016-12-27] MEDS: MULTIVITAMINS, THERA 1 EACH TAB PO SCH (12:06)
--- NOTE | 2016-12-27 13:03 | P.PN ---
Subjective Principal diagnosis: Status post ORIF left IT hip fracture Pleasant 89-year-old female seen at bedside this morning. She is status post ORIF left hip intertrochanteric fracture on 12/24/2016. She is 3 days postop now. Her pain is controlled on oral pain medications. She has no complaints today. She denies any new complaints. She denies numbness, tingling, calf pain or other. Review of systems negative for fever, chills, chest pain, shortness breath, nausea, vomiting, dizziness, headaches, slurred speech or other. Objective - Vital Signs Vital signs: Vital Signs Temp 99.7 F H 12/27/16 07:00 Pulse 82 12/27/16 11:41 Resp 20 12/27/16 07:00 BP 140/96 12/27/16 07:00 Pulse Ox 97 12/27/16 07:00 Intake & Output 12/26/16 12/27/16 12/27/16 18:59 06:59 18:59 Intake Total 240 240 Output Total 550 1000 Balance -310 -1000 240 Weight 51.256 kg Intake: Oral 240 240 Output: Urine 550 1000 Other: Voiding Method Indwelling Catheter Indwelling Catheter # Voids 1 # Bowel Movements 0 1 - Exam Inspection of the left hip surgical wound is benign. Fabián are intact. There is no active bleeding or drainage or signs of infections. There is no erythema. Neurovascular status intact with the left lower extremity with motor and sensation. Calf is soft and nontender. 2+ dorsalis pedis pulse and less than 2 second cap refill is present. - Constitutional General appearance: Present: no acute distress - Psychiatric Psychiatric: Present: A&O x's 3, appropriate affect, intact judgment & insight - Labs CBC & Chem 7: 12/25/16 08:05 12/25/16 08:05 Labs: Abnormal Lab Results - Last 24 Hours (Table) 12/26/16 Range/Units 13:12 Urine Blood Trace H (Negative) Ur Leukocyte Esterase Trace H (Negative) Urine Mucus Rare H (None) /hpf Microbiology - Last 24 Hours (Table) 12/26/16 13:12 Urine Culture - Preliminary Urine,Catheterized Assessment and Plan (1) Fracture of left hip Narrative/Plan: Continue with routine postop orthopedic protocol including pain management, wound care, physical therapy, DVT prophylaxis and medical management. Plan is for her to transfer to an extended care facility likely tomorrow 12/28/2016. Status: Acute Time with Patient: Less than 30
--- NOTE | 2016-12-27 17:26 | P.PN ---
Subjective Date of service 10/27/2016. Personal being dictated for Dr. Mccormick. Interval history: This is an 89-year-old female status post left hip ORIF yesterday, tolerated procedure well. Doing well with good diet intake, no nausea vomiting or diarrhea. Pain controlled , currently sitting up in chair. Positive bowel movement. Persistent fevers, T-max 100.4 . Rocephin initiated yesterday. Cultures pending .Denies chest pain, palpitations. Denies increase in shortness of breath. Objective - Vital Signs Vital signs: Vital Signs Temp 99.4 F 12/27/16 14:57 Pulse 84 12/27/16 15:23 Resp 20 12/27/16 14:57 BP 152/72 12/27/16 14:57 Pulse Ox 97 12/27/16 14:57 Intake & Output 12/26/16 12/27/16 12/27/16 18:59 06:59 18:59 Intake Total 240 480 Output Total 550 1000 Balance -310 -1000 480 Weight 51.256 kg Intake: Oral 240 480 Output: Urine 550 1000 Other: Voiding Method Indwelling Catheter Indwelling Catheter Indwelling Catheter # Voids 1 # Bowel Movements 0 1 1 - Exam PHYSICAL EXAM: VITAL SIGNS: As above GENERAL: [Sitting up in chair, no acute distress, visiting with family] HEENT: [Pupils equal conjunctiva normal. Oral mucosa moist] NECK: [Supple, no JVD] RESPIRATORY EFFORT:[ Normal] LUNGS: [Bilateral bases diminished, no wheezes, rhonchi or crackles] CARDIOVASCULAR[ regular S1 and S2, no murmurs rubs or gallops, mild edema] GI: [Abdomen soft, nontender, positive bowel sounds. No organomegaly, no rigidity] PSYCH: [Alert and oriented -3, mood and affect normal.] EXTREMITY: Dressing clean dry and intact; surgical site well approximated, no redness, serosanguineous drainage NEURO: No focal deficits, - Labs CBC & Chem 7: 12/25/16 08:05 12/25/16 08:05 Labs: Microbiology - Last 24 Hours (Table) 12/26/16 14:49 Blood Culture - Preliminary Blood No Growth after 24 hours 12/26/16 15:03 Blood Culture - Preliminary Blood No Growth after 24 hours 12/26/16 13:12 Urine Culture - Preliminary Urine,Catheterized Assessment and Plan Plan: 1. Left hip fracture secondary to fall, status post left ORIF. 2. [ Fever for evaluation, pancultured]. 3. [] Severe pain, controlled. 4. [] Hyponatremia, improved. 5. [] Asthma, COPD history. 6. [ Fibromyalgia, history]. 7. Degenerative joint disease 8. Hypothyroidism 9 Peripheral neuropathy of left foot 10. Chronic hypoxic respiratory failure home, wears 2 L nasal cannula 11. Degenerative joint disease 12. History of nicotine dependence Plan: Continue on current medication regime , Rocephin, monitoring and symptomatic treatment. Continue with Aggressive pulmonary toileting/ Incentive spirometer. Awaiting culture results. Possible discharge tomorrow on a week of Ceftin .further recommendations to follow. The impression and plan of care has been dictated as directed. : I performed a H&P examination of this patient and discussed the same with the dictator. I agree with the dictator's note. Any additional findings/opinions/ etc. will be noted.
[2016-12-27] MEDS ORDERED: WARFARIN 5 MG TAB PO ONE (19:00)
[2016-12-27] MEDS: SENNOSIDES-DOCUSATE SODIUM 1 EACH TAB PO SCH (21:08)
[2016-12-27] MEDS: ACETAMINOPHEN TAB 325 MG TAB PO PRN (22:08)
[2016-12-28] MEDS: LACTATED RINGERS 1,000 ML IV SCH ×2 (04:54→09:15)
[2016-12-28] MEDS: LEVOTHYROXINE 25 MCG TAB PO SCH (06:16)
[2016-12-28] MEDS: IPRATROPIUM-ALBUTEROL 3 ML NEB INHALATION SCH ×4 (07:14→20:01)
[2016-12-28] MEDS: SYMBICORT 80-4.5 MCG INHALER INHALATION SCH ×2 (07:14→20:01)
[2016-12-28] MEDS: PANTOPRAZOLE 40 MG TABLET PO SCH (08:15)
[2016-12-28 08:51] LABS: INR 1.1 (<1.1); Prothrombin Time 10.8 sec (9.0-12.0)
[2016-12-28 08:54] LABS: Basophils % (A) 0 %; CH 29.6; CHCM 32.3; Eosinophils # (A) 0.2 k/uL (0-0.7); Eosinophils % (A) 3 %; HDW 2.67; HGB 9.2 gm/dL (11.4-16.0); Luc # (Auto) 0.16; Luc % (Auto) 2; Lymphocytes # (A) 1.2 k/uL (1.0-4.8); Lymphocytes % (A) 17 %; MCH 29.1 pg (25.0-35.0); MCHC 31.6 g/dL (31.0-37.0); Mean Platelet Volume 7.7; Monocytes # (A) 0.5 k/uL (0-1.0); Monocytes % (A) 7 %; Neutrophils # (A) 4.8 k/uL (1.3-7.7); Neutrophils % (A) 70 %; RBC 3.15 m/uL (3.80-5.40); RDW 13.4 % (11.5-15.5); WBC 6.8 k/uL (3.8-10.6); WBC (Perox) 6.69
[2016-12-28 09:12] LABS: Anion Gap 9 mmol/L; Blood Urea Nitrogen 12 mg/dL (7-17); Calcium 8.5 mg/dL (8.4-10.2); Carbon Dioxide 24 mmol/L (22-30); Chloride 102 mmol/L (98-107); Glucose 107 mg/dL (74-99); Non-African American GFR(MDRD) >60 (>60 ml/min/1.73 sqM); Potassium 3.6 mmol/L (3.5-5.1); Sodium 135 mmol/L (137-145)
[2016-12-28] MEDS: HEPARIN SODIUM,PORCINE 5,000 UNIT/ML 1 ML VIAL SQ SCH ×2 (09:13→21:46)
[2016-12-28] MEDS: ATENOLOL 25 MG TAB PO SCH (09:14)
[2016-12-28] MEDS: LORATADINE 10 MG TAB PO SCH (09:14)
[2016-12-28] MEDS: MONTELUKAST 10 MG TAB PO SCH (09:14)
[2016-12-28] MEDS: MULTIVITAMINS, THERA 1 EACH TAB PO SCH (10:50)
[2016-12-28] MEDS: HYDROcodone/APAP 5-325MG 1 EACH TAB PO PRN (13:19)
--- NOTE | 2016-12-28 15:00 | P.PN ---
Subjective Principal diagnosis: Status post ORIF left IT hip fracture Pleasant 89-year-old female seen at bedside this morning. She is status post ORIF of left hip intertrochanteric fracture on 12/24/2016. Her pain is controlled on oral pain medications. She has no complaints today. She had a low grade fever and is being worked up for etiology otherwise is doing well. She denies any new complaints. She denies numbness, tingling, calf pain or other. Review of systems negative for fever, chills, chest pain, shortness breath, nausea, vomiting, dizziness, headaches, slurred speech or other. Objective - Vital Signs Vital signs: Vital Signs Temp 98.1 F 12/28/16 07:41 Pulse 88 12/28/16 12:07 Resp 20 12/28/16 08:00 BP 149/83 12/28/16 07:41 Pulse Ox 96 12/28/16 07:41 Intake & Output 12/27/16 12/28/16 12/28/16 18:59 06:59 18:59 Intake Total 480 800 200 Output Total 950 1900 Balance 480 -150 -1700 Weight 51.256 kg Intake: Intake, IV Titration 800 Amount Lactated Ringers 1,000 ml 800 @ 100 mls/hr IV .Q10H [facility] Rx#:[id number] Oral 480 200 Output: Urine 950 1900 Other: Voiding Method Indwelling Catheter Indwelling Catheter Indwelling Catheter # Voids 1 1 # Bowel Movements 1 - Exam Inspection of the left hip surgical wound is benign. Fabián are intact. There is no active bleeding or drainage or signs of infection. There is no erythema. Neurovascular status intact with the left lower extremity with motor and sensation. Calf is soft and nontender. 2+ dorsalis pedis pulse and less than 2 second cap refill is present. - Constitutional General appearance: Present: no acute distress - Psychiatric Psychiatric: Present: A&O x's 3, appropriate affect, intact judgment & insight - Labs CBC & Chem 7: 12/28/16 08:17 12/28/16 08:17 Labs: Abnormal Lab Results - Last 24 Hours (Table) 12/28/16 12/28/16 Range/Units : 08:17 RBC 3.15 L (3.80-5.40) m/uL Hgb 9.2 L (11.4-16.0) gm/dL Hct 29.0 L (34.0-46.0) % Sodium 135 L (137-145) mmol/L Glucose 107 H (74-99) mg/dL Microbiology - Last 24 Hours (Table) 12/27/16 10:05 Gram Stain - Preliminary Hip - Left Wound Culture - Preliminary 12/26/16 13:12 Urine Culture - Final Urine,Catheterized 12/26/16 14:49 Blood Culture - Preliminary Blood No Growth after 24 hours 12/26/16 15:03 Blood Culture - Preliminary Blood No Growth after 24 hours Assessment and Plan (1) Fracture of left hip Narrative/Plan: Continue with routine postop orthopedic protocol including pain management, wound care, physical therapy, DVT prophylaxis and medical management. She is nonweightbearing with left lower extremity. She is ok to transfer from an orthopedic standpoint when ok with IM/ID. Plan is for her to transfer to an extended care facility. Status: Acute Time with Patient: Less than 30
--- NOTE | 2016-12-28 17:43 | US ---
EXAMINATION TYPE: US venous doppler duplex LE LT DATE OF EXAM: 12/28/2016 4:49 PM COMPARISON: NONE CLINICAL HISTORY: swelling. SIDE PERFORMED: Left TECHNIQUE: The lower extremity deep venous system is examined utilizing real time linear array sonog james with graded compression, doppler sonography and color-flow sonography. VESSELS IMAGED: External Iliac Vein (EIV) Common Femoral Vein Deep Femoral Vein Greater Saphenous Vein * Femoral Vein Popliteal Vein Small Saphenous Vein * Proximal Calf Veins (* superficial vessels) Within the popliteal fossa there is a hypoechoic focus measuring 2.9 x 5.6 x 1.5 cm with some low-lev el internal echoes Left Leg: Negative for DVT IMPRESSION: Grayscale, color doppler, spectral doppler imaging performed of the deep veins of the lo wer extremities. There is normal flow, compressibility, vascular waveforms bilaterally. No deep loco ous thrombosis at or above the right knee. 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
[2016-12-28] MEDS ORDERED: WARFARIN 5 MG TAB PO ONE (18:00)
--- NOTE | 2016-12-28 18:19 | PN ---
Patient is an 89-year-old admitted with left hip open reduction internal fixation. Patient continues to have fevers. Patient had a fever last night. Source of infection is not clear, because of which I am consulting Infectious Disease. Patient continues to be on Rocephin. REVIEW OF SYSTEMS: CARDIOVASCULAR: No chest pain, no orthopnea, no PND, no palpitations. PULMONARY: Denied any shortness of breath. No cough or hemoptysis. GASTROINTESTINAL: No diarrhea, nausea or vomiting. No abdominal pain. Normoactive bowel sounds. NEUROLOGIC: No headaches, no weakness, no numbness. Medications were reviewed. PHYSICAL EXAMINATION: VITAL SIGNS: Temperature 98.1. [id number] T-max is 101. Pulse of 88, respiratory rate of 20. Blood pressure is 149/65. Saturating 96% on room air. GENERAL: The patient is alert and oriented x3, not in any acute distress. Well developed, well nourished. HEENT: Pupils are round and equally reacting to light. EOMI. No scleral icterus. No conjunctival pallor. Normocephalic, atraumatic. No pharyngeal erythema. No thyromegaly. CARDIOVASCULAR: S1 and S2 present. No murmurs, rubs, or gallops. PULMONARY: Chest is clear to auscultation, no wheezing or crackles. ABDOMEN: Soft, nontender, nondistended, normoactive bowel sounds. No palpable organomegaly. MUSCULOSKELETAL: No joint swelling or deformity. EXTREMITIES: No cyanosis, clubbing, or pedal edema. NEUROLOGICAL: Gross neurological examination did not reveal any focal deficits. SKIN: No rashes. LABORATORY DATA: CBC, CMP: no significant abnormality compared to yesterday. So far all the cultures are negative. ASSESSMENT AND PLAN: 1. Febrile episode without any clear-cut source of infection. Patient has systemic inflammatory response syndrome, although patient is on empiric antibiotics. Infectious disease consult, as mentioned above. 2. Left hip open reduction internal fixation. DVT prophylaxis and pain management as per Orthopedic Services. 3. Hypovolemic hyponatremia, improved with IV fluids, which will be discontinued. 4. Chronic obstructive pulmonary disease without any acute exacerbation. 5. Fibromyalgia. 6. Hypothyroidism. 7. Peripheral neuropathy of the left foot, for which we will use symptomatic management.
[2016-12-28] MEDS: SENNOSIDES-DOCUSATE SODIUM 1 EACH TAB PO SCH (21:46)
[2016-12-29] MEDS: LEVOTHYROXINE 25 MCG TAB PO SCH (06:13)
[2016-12-29] MEDS: IPRATROPIUM-ALBUTEROL 3 ML NEB INHALATION SCH ×2 (07:17→11:22)
[2016-12-29] MEDS: SYMBICORT 80-4.5 MCG INHALER INHALATION SCH (07:18)
[2016-12-29 07:42] VITALS: BP 151/84; RESP 17
[2016-12-29] MEDS: PANTOPRAZOLE 40 MG TABLET PO SCH (08:00)
--- NOTE | 2016-12-29 08:00 | CONS ---
DATE OF CONSULTATION: 12/28/2016 REASON FOR CONSULTATION: Fever. HISTORY OF PRESENT ILLNESS: The patient is an 89-year-old female presented to the hospital after patient did have a fall with pain to the left hip area. The patient was diagnosed with comminuted displaced intertrochanteric fracture of the left hip. The patient was taken to the OR on 12/20/2016 and is status post ORIF of this comminuted fracture of left hip. Patient who was afebrile after the hospital, started having a fever after surgery with fever of 101.6 on the eleventh. On the twelfth she has fever of 101.1 and another fever of 101 degrees Fahrenheit last night for which the patient did have blood cultures obtained which has been negative so far. The patient did not have an elevated white count. Urine has been negative. She has been started on Rocephin. I was asked to see the patient today for further recommendation regarding antibiotic therapy. Patient remains to have pain in the left hip area and is becoming to be more of a dull aching pain about 4 to 5 out of 10 and no radiation. The patient did have slight serous drainage from it which is being cultured by the primary team. The patient denies having any headache and patient denies having any significant chest pain, shortness of breath. Very minimal cough and is using her incentive spirometry. No abdominal pain. No diarrhea. No significant burning or frequency of urine. REVIEW OF SYSTEMS: CONSTITUTIONAL: Positive for weakness and fever. EYES: No complaint. ENT: No complaint. RESPIRATORY: As per HPI. CARDIOVASCULAR: No complaint. GENITOURINARY: No complaint. GASTROINTESTINAL: No complaint. MUSCULOSKELETAL: As per HPI. INTEGUMENTARY: No complaint. PSYCHOLOGICAL: No complaint. ENDOCRINE: No complaint. NEUROLOGIC: No complaint. PAST MEDICAL HISTORY: Significant for hypertension, osteoarthritis, hypothyroidism, fibromyalgia, COPD, asthma, neuropathy. PAST SURGICAL HISTORY: Appendectomy, hernia repair, right shoulder surgery, fracture, right inguinal hernia repair, right knee arthroscopy, cataracts removal and lens implant, and hemorrhoidectomy. SOCIAL HISTORY: Remote history of smoking. She quit at the age of 62. Smoked for about 40 years. No drinking or drug use. FAMILY HISTORY: Mother with a history of congestive heart, at age of 97. Father with history of CVA, TIA, at age of 88. ALLERGIES TO SULFA, LIPITOR AND METHOTREXATE. Medications currently include the patient is on Tylenol, [place], DuoNeb, Tenormin, Symbicort, Rocephin, heparin, Dilaudid, Claritin, milk of magnesia, Coumadin, ProAir, Theragran, Narcan, Zofran, Protonix and Senokot. On examination, blood pressure is 156/72 with a pulse of 71, temperature 98. She is 94% on room air. General description is an elderly female up in the chair in no distress. No tachypnea or accessory muscles of respiration use. HEENT examination shows slight pallor. There is no scleral icterus. Oral mucous membrane dry. NECK: Trachea central. There is no thyromegaly. LUNGS: Unlabored breathing with decreased breath sounds at the base. No wheeze. HEART: S1, S2 with regular rate and rhythm. ABDOMEN: Soft. No tenderness. EXTREMITIES: Left leg seems to be more swollen but no redness. Left hip incision site there is some serous drainage, but no significant surrounding swelling or redness was noticed. No foul-smelling drainage. NEUROLOGICAL: The patient is awake, alert, oriented x2. Mood and affect normal. LABS: Hemoglobin 9.8, white count 6.8, BUN of 12, creatinine 0.7. Electrolytes have been normal. Urine not significantly positive. Chest x-ray report negative for any acute infiltrate. DIAGNOSTIC IMPRESSION AND PLAN: Patient with fever postop in a patient who did have a left hip intertrochanteric fracture status post repair of the same with daily spikes of fever post surgery, could have been more likely the ( ) traumatic or possible hematoma at the fractured site as the patient did drop hemoglobin from 11 to 8.9. The patient has no other clinical focus of infection. Atelectasis will be the other concern. Patient has no significant respiratory symptoms or any finding on clinical examination and chest x-ray negative suggesting pneumonia. Abdomen is soft to clinical examination and urine was clear and no significant inflammation was noticed at the site of left hip. PLAN: 1. We will obtain an ultrasound of left lower extremity to make sure there is no evidence of any DVT. 2. Clinically with no source of infection, recommend keeping the patient off antibiotic therapy. Rocephin can be safely discontinued and if no fever today, she should be able to go to rehab tomorrow.
[2016-12-29 08:41] LABS: INR 1.3 (<1.1); Prothrombin Time 13.2 sec (9.0-12.0)
[2016-12-29] MEDS: HEPARIN SODIUM,PORCINE 5,000 UNIT/ML 1 ML VIAL SQ SCH (09:55)
[2016-12-29] MEDS: MONTELUKAST 10 MG TAB PO SCH (09:56)
[2016-12-29] MEDS: LORATADINE 10 MG TAB PO SCH (09:56)
[2016-12-29] MEDS: ATENOLOL 25 MG TAB PO SCH (09:56)
[2016-12-29 11:24] VITALS: PULSE 77
[2016-12-29] MEDS: MULTIVITAMINS, THERA 1 EACH TAB PO SCH (11:54)
[2016-12-29 11:58] VITALS: TEMP 97.9
[2016-12-29] MEDS: HYDROcodone/APAP 5-325MG 1 EACH TAB PO PRN (12:04)
[2016-12-29] MEDS ORDERED: HYDROcodone/APAP 5-325MG 1 EACH TAB PO STA (14:53)
--- NOTE | 2016-12-29 15:19 | DS ---
DATE OF ADMISSION: 12/22/2016 DATE OF DISCHARGE: This patient is an 89-year-old admitted for open reduction internal fixation. Patient had fevers postoperatively. Source of infection is not identified. Patient still has low-grade fevers, although there is no source identified. Patient was on Rocephin here. Infectious Disease evaluate the patient and they are not recommending any continuation of antibiotics, although patient had a Alt[place]ir[place] catheter that was put in yesterday. Orthopedics is recommending continuation of the Altamirano catheter until she ambulates. Patient will be discharged today. Patient was seen and examined on the day of discharge. Vitals are stable. GENERAL: The patient is alert and oriented x3, not in any acute distress. Well developed, well nourished. HEENT: Pupils are round and equally reacting to light. EOMI. No scleral icterus. No conjunctival pallor. Normocephalic, atraumatic. No pharyngeal erythema. No thyromegaly. CARDIOVASCULAR: S1 and S2 present. No murmurs, rubs, or gallops. PULMONARY: Chest is clear to auscultation, no wheezing or crackles. ABDOMEN: Soft, nontender, nondistended, normoactive bowel sounds. No palpable organomegaly. MUSCULOSKELETAL: Defer to Orthopedic Surgery. EXTREMITIES: No cyanosis, clubbing, or pedal edema. NEUROLOGICAL: Gross neurological examination did not reveal any focal deficits. SKIN: No rashes. FINAL DIAGNOSES: 1. Febrile episode without any clear-cut source of infection; may be inflammatory response post surgery. 2. Left hip open reduction internal fixation. DVT prophylaxis as per Orthopedic Surgery. 3. Hypovolemic hyponatremia. 4. Chronic obstructive pulmonary disease without any acute exacerbation. 5. Fibromyalgia. 6. Hypothyroidism. 7. Peripheral neuropathy of the left foot. PLAN: Please refer to my depart summary for the list of discharge medications. Activity as tolerated. Cardiac diet. Follow up with Dr. Quevedo or Dr. Coelho in the subacute rehab. Spent greater than 35 minutes in total discharge process.
--- NOTE | 2016-12-29 15:28 | PN ---
DATE OF SERVICE: 12/29/2016 Reason for followup is fever. INTERVAL HISTORY: The patient did spike another fever last night of 101; however, the patient has a low fever this morning of 100. Patient is afebrile since then, overall the patient is feeling, better comfortably. Denies significant chest pain or shortness of breath, no cough. No abdominal pain, no new pain in the left hip area. On examination, blood pressure 151/84 with a pulse of 77, temperature 97.9, she is 94% on room air. General description is an elderly female up in the chair, in no distress. RESPIRATORY SYSTEM: Unlabored breathing. Clear to auscultation anteriorly. HEART: S1, S2. Regular rate and rhythm. ABDOMEN: Soft. No tenderness. LABS: Hemoglobin 9.1, white count 6.8 with a BUN of 12, creatinine 0.70. Cultures remain to be negative. DIAGNOSTIC IMPRESSION AND PLAN: Patient with a postoperative fever. The patient did have a left hip intertrochanteric fracture, status post repair. Did have drop in the hemoglobin, question of possible hematoma as well of the clinical focus of infection. No pneumonia on the x-ray or clinical finding. Urine has been negative and the cultures negative. Recommend watch very closely off antibiotic therapy. Plan of care was discussed with ( ) We discussed with the attending physician.
== END 2016-12-29 15:16 | DRG 481 ==
LOC: EC 10:49 → 4MS4W 13:49
PROVIDERS: ADMIT Internal Medicine; ATTEND Internal Medicine
PROC: 0QS704Z Reposition Left Upper Femur with Internal Fixation Device, Open Approach (ICD-10-PCS; principal; 2016-12-25)
DX: S72.142A Displaced intertrochanteric fracture of left femur, initial encounter for closed fracture (principal); J96.11 Chronic respiratory failure with hypoxia; R65.10 Systemic inflammatory response syndrome (SIRS) of non-infectious origin without acute organ dysfunction; E87.1 Hypo-osmolality and hyponatremia; G62.9 Polyneuropathy, unspecified; J44.9 Chronic obstructive pulmonary disease, unspecified; E03.9 Hypothyroidism, unspecified; I10 Essential (primary) hypertension; M19.90 Unspecified osteoarthritis, unspecified site; M79.7 Fibromyalgia; R50.9 Fever, unspecified; E86.1 Hypovolemia; R73.9 Hyperglycemia, unspecified; J45.909 Unspecified asthma, uncomplicated; Z99.81 Dependence on supplemental oxygen; Z79.899 Other long term (current) drug therapy; Z87.891 Personal history of nicotine dependence; Z88.2 Allergy status to sulfonamides; Z88.8 Allergy status to other drugs, medicaments and biological substances; Z82.49 Family history of ischemic heart disease and other diseases of the circulatory system; W07.XXXA Fall from chair, initial encounter; Y92.9 Unspecified place or not applicable
CPT/HCPCS: 36415; 71010; 73501; 73502; 80048; 81001; 85025; 85610; 85730; 87040; 87070; 87086; 87205; 93005; 94640; 96361; 96374; 96375; 96376; 99285